=== PATIENT | male | born 1975 | race Caucasian/White ===

== ENCOUNTER 2016-09-03 18:28 | Emergency (ER) | payer SELFPAY ==
[2016-09-03] MEDS ORDERED: LIDOCAINE 1%/EPINEPHRINE INJ 20 ML VIAL INJ ONE (18:44)
[2016-09-03] MEDS ORDERED: DIPH/PERTUSS(ACELL)/TETANUS VAC/PF 0.5 ML SYR (>=10YO) IM ONE (18:44)
[2016-09-03] MEDS ORDERED: ALBUTEROL SULFATE 0.083% NEB 2.5 MG/3 ML AMPUL NEB ONE (18:45)
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
[2016-09-03] MEDS ORDERED: HYDROMORPHONE HCL INJ/PF 2 MG/ML AMPULE ONE ×2 (19:11→19:41)
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
[2016-09-03] MEDS ORDERED: AMOXICILLIN TR/POT CLAVULANATE 500-125 MG TAB PO ONE (20:20)
[2016-09-03] MEDS ORDERED: HYDROMORPHONE HCL INJ/PF 2 MG/ML AMPULE IV ONE ×2 (20:20→20:21)
[2016-09-03] MEDS ORDERED: HYDROCODONE/ACETAMINOPHEN 5-325 MG 6 TAB/DSPK PO PRN (20:20)
[2016-09-03] MEDS ORDERED: POLYMYXIN B SULFATE/TMP OPH SOLN (10 ML/ER DISP) OD PRN (20:22)
[2016-09-03 21:12] VITALS: BP 142/86
== END 2016-09-03 20:59 | disposition home or self-care (01) ==
LOC: ER 18:28
PROC: 0CQ0XZZ Repair Upper Lip, External Approach (ICD-10-PCS; principal; 2016-09-03)
PROC: 0CQ1XZZ Repair Lower Lip, External Approach (ICD-10-PCS; 2016-09-03)
PROC: 0HQ1XZZ Repair Face Skin, External Approach (ICD-10-PCS; 2016-09-03)
DX: S02.5XXA Fracture of tooth (traumatic), initial encounter for closed fracture (principal); S01.81XA Laceration without foreign body of other part of head, initial encounter; S01.511A Laceration without foreign body of lip, initial encounter; S01.512A Laceration without foreign body of oral cavity, initial encounter; T15.02XA Foreign body in cornea, left eye, initial encounter; V43.53XA Car driver injured in collision with pick-up truck in traffic accident, initial encounter; F17.200 Nicotine dependence, unspecified, uncomplicated
CPT/HCPCS: 96376; 94640; 99284; 90471; 96374; 71020; 70450; 70486; 90715; 40831; 12014; J3490 ×2; J1170

== ENCOUNTER 2016-09-04 07:52 | Emergency (ER) | payer SELFPAY ==
[2016-09-04 07:57] VITALS: BP 105/74
[2016-09-04] MEDS ORDERED: LIDOCAINE 1% INJ-PF (10 MG/ML) 30 ML SDV INJ ONE (08:50)
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
== END 2016-09-04 10:10 | disposition home or self-care (01) ==
LOC: ER 07:52
PROC: 0HQ1XZZ Repair Face Skin, External Approach (ICD-10-PCS; principal; 2016-09-04)
DX: S01.511A Laceration without foreign body of lip, initial encounter (principal); V87.7XXA Person injured in collision between other specified motor vehicles (traffic), initial encounter
CPT/HCPCS: 99282; 12011; J3490

== ENCOUNTER 2016-10-11 11:25 | Emergency (ER) | payer SELFPAY ==
[2016-10-11 11:39] VITALS: BP 146/90
--- NOTE | 2016-10-11 12:29 | ER Document Report ---
ED Medical Screen (RME) - General Chief Complaint: Insect Bite Stated Complaint: SPIDER BITE Time Seen by Provider: 10/11/16 12:22 Notes: Patient with draining abscess over the left lateral radial wrist just proximal to the first metacarpal. He has been squeezing it and it is since developed a purplish color. There was some pus earlier drained. He had a similar abscess just distal to this 1 previously. I have greeted and performed a rapid initial assessment of this patient. A comprehensive ED assessment and evaluation of the patient, analysis of test results and completion of the medical decision making process will be conducted by additional ED providers. TRAVEL OUTSIDE OF THE [place] IN LAST 30 DAYS: No - Related Data Allergies/Adverse Reactions: No Known Allergies Allergy (Verified 10/11/16 11:36) Past Medical History Renal/ Medical History: Denies: Hx Peritoneal Dialysis Physical Exam - Vital signs Vitals: Temp Pulse Resp BP Pulse Ox 98.2 F 84 18 146/90 H 95 10/11/16 11:38 10/11/16 11:38 10/11/16 11:38 10/11/16 11:38 10/11/16 11:38 Course - Vital Signs Vital signs: Temp Pulse Resp BP Pulse Ox 98.2 F 84 18 146/90 H 95 10/11/16 11:38 10/11/16 11:38 10/11/16 11:38 10/11/16 11:38 10/11/16 11:38
== END 2016-10-11 13:30 | disposition left against medical advice (07) ==
LOC: ER 11:25
DX: Z53.9 Procedure and treatment not carried out, unspecified reason (principal); T63.301A Toxic effect of unspecified spider venom, accidental (unintentional), initial encounter
CPT/HCPCS: 99281